=== PATIENT | female | born 1980 | race Caucasian/White ===

== ENCOUNTER 2016-12-07 10:54 | Emergency (ER) | payer OTHER ==
[2016-12-07] MEDS ORDERED: METOCLOPRAMIDE 10 MG/2 ML VIAL ONE (12:04)
[2016-12-07] MEDS ORDERED: KETOROLAC 30 MG/ML VIAL ONE (12:05)
[2016-12-07] MEDS ORDERED: DIPHENHYDRAMINE 50 MG/ML VIAL ONE (12:05)
== END 2016-12-07 12:42 | disposition home or self-care (01) ==
LOC: ER 10:54
DX: R07.89 Other chest pain (principal); F15.10 Other stimulant abuse, uncomplicated; F12.10 Cannabis abuse, uncomplicated; Z79.899 Other long term (current) drug therapy; F17.210 Nicotine dependence, cigarettes, uncomplicated; I10 Essential (primary) hypertension; F41.1 Generalized anxiety disorder
CPT/HCPCS: 36415; 71010; 80053; 81003; 82009; 82550; 83735; 84484; 85025; 85610; 85730; 93005; 96374; 96375